=== PATIENT | male | born 1935 | race Caucasian/White ===

== ENCOUNTER 2024-07-07 06:39 | Outpatient (CLI) | payer MEDICARE, BC | END 2024-07-07 23:59 | disposition home or self-care (01) | LOC: MRI02 06:39 | PROVIDERS: ATTEND Pediatrics Sports Medicine | DX: S83.282A Other tear of lateral meniscus, current injury, left knee, initial encounter (principal); M25.462 Effusion, left knee; M25.562 Pain in left knee; X58.XXXA Exposure to other specified factors, initial encounter; Y93.89 Activity, other specified; Y92.89 Other specified places as the place of occurrence of the external cause; Y99.8 Other external cause status | CPT/HCPCS: 73721 ==